=== PATIENT | female | born 1985 | race Two or more races ===

== ENCOUNTER 2020-12-13 20:45 | Emergency (ER) | payer OTHER ==
[~2020-12-13] VITALS: Ht 175.3 cm; Wt 68.0 kg
--- NOTE | 2020-12-13 21:30 | NUR ---
bibself c/o headache, nausea, and general weakness s/p exposed to carbon monoxide last night, pt is aa/o x4 headache 03/20, not on respiratory distress, on room air spo2 100%, walking but needs assistance,
--- NOTE | 2020-12-13 21:35 | NUR ---
lab at bed side blood is drawn
[2020-12-13] MEDS ORDERED: ONDANSETRON HCL/PF 4 MG/2 ML VIAL ONE (21:51)
[2020-12-13] MEDS ORDERED: KETOROLAC TROMETHAMINE 15 MG/ML VIAL ONE (21:51)
[2020-12-13 21:57] LABS: ABG BASE EXCESS -1.3 mmol/L; ABG OXYGEN SATURATION 96.6 % (92.0-98.5); ABG PCO2 36.9 mmHg (35.0-45.0); ABG PH 7.411 (7.350-7.450); ABG PO2 93.9 mmHg (75.0-100.0); AaDO2 11.6 mmHg; COHb 0.6 % (0.5-1.5); MetHb 0.3 % (0.0-1.5); O2Hb 95.7 % (94.0-97.0); SITE, ABG Left Brachial; VENT MODE, BG Room Air
[2020-12-13 21:58] LABS: BASOPHILS # (AUTO) 0.1 /CMM (0.0-0.2); BASOPHILS % (AUTO) 1.2 % (0.0-2.0); HEMATOCRIT 42 % (33-45); HEMOGLOBIN 14.1 g/dL (11.5-14.8); LYMPHOCYTES # (AUTO) 2.3 /CMM (0.8-4.8); LYMPHOCYTES % (AUTO) 25.2 % (20.0-44.0); MEAN CORPUSCULAR HGB CONC 33 g/dl (31.0-36.0); MEAN CORPUSCULAR VOLUME 87 fL (82-100); MONOCYTES # (AUTO) 0.6 /CMM (0.1-1.30); MONOCYTES % (AUTO) 7.2 % (2.0-12.0); NEUTROPHILS # (AUTO) 5.9 /CMM (1.8-8.9); NEUTROPHILS % (AUTO) 65.4 % (43.0-81.0); PLATELET COUNT (AUTO) 283 /CMM (150-450)
[2020-12-13] MEDS ORDERED: IV NS 0.9% 1,000 ML BAG IV ONE (22:00)
[2020-12-13] MEDS ORDERED: ONDANSETRON HCL/PF 4 MG/2 ML VIAL IVP ONE (22:00)
[2020-12-13] MEDS ORDERED: KETOROLAC TROMETHAMINE INJ 30 MG/ML VIAL IV ONE (22:00)
[2020-12-13 22:13] LABS: ALBUMIN 4.6 g/dL (3.4-5.0); BILIRUBIN,DIRECT 0.1 mg/dL (0.0-0.2); BILIRUBIN,TOTAL 0.3 mg/dL (0.2-1.0); CALCIUM, SERUM 9.4 mg/dL (8.5-10.1); CREATININE 0.8 mg/dL (0.6-1.3); POTASSIUM 4.1 mmol/L (3.5-5.1); TOTAL PROTEIN, SERUM 9.1 g/dL (6.4-8.2)
[2020-12-13 23:18] VITALS: BP 116/65
--- NOTE | 2020-12-13 23:19 | NUR ---
Patient discharged to home in stable condition. Written and verbal after care instructions given. Patient verbalizes understanding of instruction.IV removed. Catheter intact and site benign. Pressure and 4x4 applied to site. No bleeding noted.Ms Vega is ambulatory with a steady gait using 1 hand walker,
== END 2020-12-13 23:21 | disposition home or self-care (01) ==
LOC: ER 20:45
DX: R11.2 Nausea with vomiting, unspecified (principal); R51.9 Headache, unspecified; R42 Dizziness and giddiness; M54.5 Low back pain; Z77.9 Other contact with and (suspected) exposures hazardous to health; Z88.5 Allergy status to narcotic agent
CPT/HCPCS: 36415; 36600 ×2; 80048; 80076; 83690; 84703; 85025; 93005; 96361; 96374; 96375; 99284; J1885; J2405; J7030